=== PATIENT | female | born 1965 | race American Indian/Alaskan Native ===

== ENCOUNTER 2017-04-15 17:30 | Outpatient (CLI) | payer MEDICAID ==
--- NOTE | 2017-04-15 19:50 | XRay Report ---
FINAL REPORT PROCEDURE: XR CHEST ROUTINE 2V PA and lateral chest x-ray TECHNIQUE: PA and lateral chest radiographs were obtained. CPT 61421 HISTORY: IMMUNODEFICIENCY COMPARISON: No prior studies are available for comparison. FINDINGS: Heart: Normal. Mediastinum/Vessels: Normal. Lungs/Pleural space: Normal. Bony thorax: No acute osseous abnormality. Other: IMPRESSION: Negative examination.
--- NOTE | 2017-04-15 22:40 | Ultrasound Report ---
FINAL REPORT PROCEDURE: US ABDOMEN LIMITED TECHNIQUE: Real-time sonography was performed of the right upper quadrant with image documentation. CPT 26074 HISTORY: N/V COMPARISON: No prior studies are available for comparison. FINDINGS: Today's study is limited due to overlying bowel gas. Gallbladder is surgically absent. Common bile duct is normal caliber measuring 2.3 millimeters. The intrahepatic ducts do not appear to be distended. Liver echogenicity appears normal. No discrete masses are identified. There is no ascites. The right kidney is unremarkable measuring 10.4 centimeters greatest length.. Pancreas is largely obscured by bowel gas. Small portion visualize shows no abnormality. IMPRESSION: Prior cholecystectomy. No acute abnormalities are identified.
== END 2017-04-15 17:31 | disposition home or self-care (01) ==
LOC: XRAY 17:30
PROVIDERS: ATTEND Nurse Practitioner
DX: D84.9 Immunodeficiency, unspecified (principal); R11.2 Nausea with vomiting, unspecified; R63.0 Anorexia; Z90.49 Acquired absence of other specified parts of digestive tract
CPT/HCPCS: 71046; 76705

== ENCOUNTER 2017-04-29 10:44 | Outpatient (CLI) | payer MEDICAID ==
--- NOTE | 2017-04-29 13:23 | XRay Report ---
THORACIC SPINE, 2 VIEWS: HISTORY: back pain. Normal bone mineralization. No evidence for compression deformity, malalignment, or bone lesion. The posterior ribs are intact. Minimal degenerative disc disease is noted in the lower thoracic spine. The paraspinal soft tissues are within normal limits. IMPRESSION: Minimal thoracic spondylosis.
--- NOTE | 2017-04-29 13:23 | XRay Report ---
LUMBOSACRAL SPINE, 3 VIEWS: History: Low back pain Findings: Normal bone mineralization. Normal height and alignment of the lumbar vertebral bodies. Minimal degenerative endplate changes and facet arthropathy is identified at all levels. No advanced degenerative changes. The SI joints are unremarkable. Impression: Minimal to mild lumbar spondylosis. No acute process noted.
== END 2017-04-29 10:45 | disposition home or self-care (01) ==
LOC: XRAY 10:44
PROVIDERS: ATTEND Nurse Practitioner
DX: M47.894 Other spondylosis, thoracic region (principal); M51.34 Other intervertebral disc degeneration, thoracic region; M47.896 Other spondylosis, lumbar region; M12.88 Other specific arthropathies, not elsewhere classified, other specified site
CPT/HCPCS: 72072; 72100

== ENCOUNTER 2017-06-18 15:27 | Outpatient (CLI) | payer MEDICAID ==
--- NOTE | 2017-06-18 17:01 | XRay Report ---
FINAL REPORT EXAM: XR CHEST ROUTINE 2V HISTORY: COUGH TECHNIQUE: Two views of the chest Comparison: 04/15/2017 FINDINGS: Heart size is normal. There is mild prominence of the left hilum. No definite focal infiltrate. Mild bronchial thickening. No pleural effusion. Bilateral nipple rings. IMPRESSION: Mild prominence of the left hilum on the frontal film without definite abnormality on the lateral film. This may represent summation artifact. Mild bronchial thickening compatible with bronchitis seen best on the lateral projection. Recommend follow-up chest x-ray for the left hilum.
== END 2017-06-18 15:28 | disposition home or self-care (01) ==
LOC: XRAY 15:27
PROVIDERS: ATTEND Nurse Practitioner
DX: R05 Cough (principal)
CPT/HCPCS: 71046

== ENCOUNTER 2017-06-19 09:50 | Outpatient (CLI) | payer MEDICAID ==
--- NOTE | 2017-06-19 11:09 | XRay Report ---
ROUTINE CHEST, TWO VIEWS: HISTORY: Cough. The trachea, heart, mediastinal contour, lung [place] and bony thorax are unremarkable. The left hilum appears unremarkable on today's exam when comparing to 06/18/17. IMPRESSION: Unremarkable chest x-ray.
== END 2017-06-19 09:51 | disposition home or self-care (01) ==
LOC: XRAY 09:50
PROVIDERS: ATTEND Nurse Practitioner
DX: R05 Cough (principal); R50.81 Fever presenting with conditions classified elsewhere
CPT/HCPCS: 71046

== ENCOUNTER 2018-05-05 08:01 | Outpatient (CLI) | payer MEDICAID ==
--- NOTE | 2018-05-05 13:07 | Mammography Report ---
BILATERAL DIGITAL SCREENING MAMMOGRAM WITH CAD: 05/05/18 08:01:00 CLINICAL: Routine screening. COMPARISON:None available. Her last mammogram was over 10 years ago. FINDINGS: The breasts are heterogeneously dense, which may obscure small masses. A group of right upper outer calcifications requires additional evaluation. No mass or architectural distortion. The left breast is negative. IMPRESSION: Right calcifications requiring further workup. BI-RADS CATEGORY: 0 -- Additional Imaging Evaluation Required RECOMMENDATION: Recall for right ML and spot magnification CC and ML views. ACR BI-RADS MAMMOGRAPHIC CODES: 0 = Needs additional imaging evaluation; 1 = Negative; 2 = Benign; 3 = Probably benign; 4 = Suspicious; 5 = Malignant; 6 = Known biopsy-proven malignancy COMMENT: 1. Dense breast tissue, i.e., adenosis, fibrocystic changes, etc., may obscure an underlying neoplasm. 2. Approximately 10% of cancers are not detected with mammography. 3. A negative mammography report should not delay biopsy if a clinically suspicious mass is present. COMMENT: Patient follow-up letters are generated via our [employer] application.
--- NOTE | 2018-05-05 13:49 | Ultrasound Report ---
ULTRASOUND ABDOMEN COMPLETE: TECHNIQUE: Transabdominal ultrasound with color Doppler interrogation. HISTORY: Nonspecific elevation of transaminase, lactic acid dehydrogenase. COMPARISON: Right upper quadrant ultrasound dated 04/15/17. FINDINGS: LIVER: Within normal limits. BILIARY SYSTEM: Cholecystectomy. The CBD measures 4.0 cm. PANCREAS: Normal. SPLEEN: Normal. KIDNEYS: Normal. AORTA/IVC: Normal. ASCITES: None. IMPRESSION: Cholecystectomy. Unremarkable liver and biliary system. No acute abnormality is detected. No change since 04/15/17.
== END 2018-05-05 08:02 | disposition home or self-care (01) ==
LOC: MAMMO 08:01
PROVIDERS: ATTEND Internal Medicine
DX: Z12.31 Encounter for screening mammogram for malignant neoplasm of breast (principal); R74.0 Nonspecific elevation of levels of transaminase and lactic acid dehydrogenase [LDH]; Z90.49 Acquired absence of other specified parts of digestive tract
CPT/HCPCS: 76700; 77067

== ENCOUNTER 2018-08-03 08:35 | Outpatient (CLI) | payer MEDICAID ==
[2018-08-03 11:08] LABS: Albumin 3.6 g/dL (3.9-5); Bilirubin,Direct 0.3 mg/dL (0-0.2)
[2018-08-03 11:57] LABS: Hepatitis B Surface Antigen Non-Reactive (Negative); Hepatitis C Virus Antibody Non-Reactive (NonReactive)
== END 2018-08-03 08:36 | disposition home or self-care (01) ==
LOC: LAB 08:35
PROVIDERS: ATTEND Internal Medicine
DX: Z13.818 Encounter for screening for other digestive system disorders (principal); Z13.1 Encounter for screening for diabetes mellitus; E78.00 Pure hypercholesterolemia, unspecified
CPT/HCPCS: 36415; 80074; 80076; 83036

== ENCOUNTER 2018-08-21 09:44 | Outpatient (CLI) | payer MEDICAID ==
--- NOTE | 2018-08-21 10:34 | Mammography Report ---
RIGHT DIGITAL DIAGNOSTIC MAMMOGRAM : 08/21/18 09:44:00 CLINICAL: Recall to evaluate calcifications. COMPARISON:05/05/18 screening FINDINGS: Additional mammographic views were performed and are negative.No suspicious calcifications. IMPRESSION: No mammographic evidence of malignancy. BI-RADS CATEGORY: 1 -- Negative RECOMMENDATION: Routine mammographic screening in one year. COMMENT: 1. Dense breast tissue, i.e., adenosis, fibrocystic changes, etc., may obscure an underlying neoplasm. 2. Approximately 10% of cancers are not detected with mammography. 3. A negative mammography report should not delay biopsy if a clinically suspicious mass is present. COMMENT: Patient follow-up letters are generated via our [employer] application.
== END 2018-08-21 09:45 | disposition home or self-care (01) ==
LOC: MAMMO 09:44
PROVIDERS: ATTEND Internal Medicine
DX: R92.8 Other abnormal and inconclusive findings on diagnostic imaging of breast (principal)

== ENCOUNTER 2018-11-24 08:37 | Outpatient (CLI) | payer MEDICAID ==
[2018-11-24 10:10] LABS: Eosinophils # (Auto) 0.2 K/mm3 (0.0-0.4); Eosinophils % (Auto) 5.2 % (0.0-4.3); Hematocrit 35.8 % (30.3-42.9); Hemoglobin 12.2 gm/dl (10.1-14.3); Lymphocytes # (Auto) 1.4 K/mm3 (1.2-5.4); Lymphocytes % (Auto) 42.1 % (13.4-35.0); Mean Corpuscular HGB Conc 34 % (30-34); Mean Corpuscular Volume 99 fl (79-97); Monocytes # (Auto) 0.3 K/mm3 (0.0-0.8); Monocytes % (Auto) 8.7 % (0.0-7.3); Platelet Count 226 K/mm3 (140-440); Red Blood Count 3.64 M/mm3 (3.65-5.03); Red Cell Distribution Width 14.5 % (13.2-15.2)
[2018-11-24 10:21] LABS: Bilirubin,Direct 0.2 mg/dL (0-0.2)
== END 2018-11-24 08:38 | disposition home or self-care (01) ==
LOC: LAB 08:37
PROVIDERS: ATTEND Internal Medicine
DX: D64.9 Anemia, unspecified (principal); R94.5 Abnormal results of liver function studies; E03.9 Hypothyroidism, unspecified
CPT/HCPCS: 36415; 80076; 84443; 85025

== ENCOUNTER 2019-04-21 11:16 | Outpatient (CLI) | payer MEDICAID | END 2019-04-21 11:17 | disposition home or self-care (01) | LOC: LAB 11:16 | PROVIDERS: ATTEND Internal Medicine | DX: B20 Human immunodeficiency virus [HIV] disease (principal); I10 Essential (primary) hypertension | CPT/HCPCS: 36415; 84443 ==

== ENCOUNTER 2019-12-06 09:24 | Outpatient (CLI) | payer MEDICAID ==
--- NOTE | 2019-12-06 10:34 | Mammography Report ---
DIGITAL SCREENING MAMMOGRAM WITH CAD, 12/06/2019 INDICATION: Routine screening mammography. TECHNIQUE: Digital bilateral 2D mammography was obtained in the craniocaudal and mediolateral obliq ue projections. This examination was interpreted with the benefit of Computer-Aided Detection analysi s. COMPARISON: 05/05/2018. FINDINGS: Breast Density: There are scattered areas of fibroglandular density. There is no evidence of dominant mass, suspicious calcifications or architectural distortion in eithe r breast. IMPRESSION: Follow up recommendation: Routine yearly BI-RADS Category 1: Negative. A "normal" or negative report should not discourage follow up or biopsy of a clinically significant f inding. A written summary of these findings will be mailed to the patient. The patient will be entered into a mammography reporting system which will generate a reminder letter for the patient's next appointmen t at the appropriate interval. The [employer] recommends yearly mammograms starting at age 40 and continuing as l luarie as a woman is in good health. Breast MRI is recommended for women with an approximate 20-25% or greater lifetime risk of breast cancer, including women with a strong family history of breast or ova ayse cancer or who have been treated for Hodgkin's disease. Signer Name: Cecil Kelly MD Signed: 12/06/2019 10:29 AM Workstation Name: [email or web address]
== END 2019-12-06 09:25 | disposition home or self-care (01) ==
LOC: MAMMO 09:24
PROVIDERS: ATTEND Internal Medicine
DX: Z12.31 Encounter for screening mammogram for malignant neoplasm of breast (principal); N64.89 Other specified disorders of breast
CPT/HCPCS: 77067

== ENCOUNTER 2021-01-24 09:57 | Outpatient (CLI) | payer MEDICAID ==
--- NOTE | 2021-01-24 12:07 | XRay Report ---
THORACIC SPINE 3 VIEWS. INDICATION: LOW BACK PAIN,UNSPECIFIED. COMPARISON: None. IMPRESSION: Normal alignment. Mild to moderate discogenic DJD is identified in the mid to lower tho racic spine. No acute osseous abnormality or bone lesion is appreciated. Signer Name: Arpan Escobedo Jr, MD Signed: 01/24/2021 12:03 PM Workstation Name: [id number]
--- NOTE | 2021-01-24 12:08 | XRay Report ---
LUMBOSACRAL SPINE 3 VIEWS INDICATION: BACK PAIN. COMPARISON: None. IMPRESSION: Normal alignment. Minimal to mild discogenic DJD is identified throughout the lumbar re gion. L2-3 appears to be most affected. There is mild diffuse facet arthropathy. No acute osseous in jury or bone lesion is appreciated. Signer Name: Arpan Escobedo Jr, MD Signed: 01/24/2021 12:04 PM Workstation Name: [id number]
== END 2021-01-24 09:58 | disposition home or self-care (01) ==
LOC: XRAY 09:57
PROVIDERS: ATTEND Internal Medicine
DX: M47.814 Spondylosis without myelopathy or radiculopathy, thoracic region (principal); M54.50 Low back pain, unspecified
CPT/HCPCS: 72072; 72100